=== PATIENT | female | born 1985 | race African-American/Black ===

== ENCOUNTER 2019-09-23 10:58 | Outpatient (CLI) | payer BC ==
--- NOTE | 2019-09-23 11:44 | RAD ---
XR Cerv Sp Ap Lat STANDARD: 09/23/2019 12:00 AM CLINICAL HISTORY: Neck pain COMPARISON: None Bones: No acute fracture demonstrated. Intervertebral disc spaces and facet complexes: Preserved. Spinal alignment: Within normal limits. Prevertebral soft tissues: Normal. Lateral masses: Symmetric. Lung apices: Clear. Additional findings: None. IMPRESSION: Normal cervical spine.
== END 2019-09-23 10:59 | disposition home or self-care (01) ==
LOC: BICRAD 10:58
PROVIDERS: ATTEND Physician Assistant Medical
DX: M54.2 Cervicalgia (principal)
CPT/HCPCS: 72040